=== PATIENT | male | born 1990 | race Caucasian/White ===

== ENCOUNTER 2018-01-18 10:07 | Emergency (ER) | payer SELFPAY ==
[~2018-01-18 10:07] MED LIST: CEPH500C3 PO; CLIN150 PO; SERT50 PO
[2018-01-18 10:46] VITALS: BP 127/60; PULSE 82; RESP 16; O2SAT 99
[2018-01-18 11:51] LABS: BILIRUBIN, URINE NEG (NEG); BLOOD, URINE NEG (NEG); GLUCOSE,URINE NEG (NEG); KETONE, URINE NEG (NEG); NITRITE,URINE NEG (NEG); URINE COLOR YELLOW (YELLW/STRAW); URINE LEUKOCYTE ESTERASE NEG (NEG)
--- NOTE | 2018-01-18 12:38 | PD ---
HPI Chief Complaint: Medical Clearance Time Seen by Provider: 12:21 Travel History International Travel<30 days: No Contact w/Intl Traveler<30days: No Traveled to known affect area: No History of Present Illness HPI 27y male presents to the emergency department complaining of "itchy bumps" in his private parts and other areas of his body for approximately 2 weeks. Patient states that these small bumps just started appearing and they go away spontaneously. He denies fevers, chills, shortness of breath, chest pain, cough , congestion. Says he has had one sexual partner the last month which is his girlfriend. States that she has had a urinary tract infections along with yeast infections and has had unprotected sex with her. He suspects that maybe these bumps are related to her condition. Says he has a history of hypothyroidism and he started taking levothyroxine August last year. He does have primary care physician in regard. He denies penile discharge, dysuria, melena, hematochezia. Denies recent travel or exposures. 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 Leave on for 8-12 hour, then wash off. 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 Review of Systems Except as stated in HPI: all other systems reviewed are Neg Physical Exam Narrative GENERAL: Well-nourished, well-developed patient. SKIN: Focused skin assessment warm/dry. Abdomen- similar papules to those in the groin region, no excoriations, no erythema or edema HEAD: Normocephalic. EYES: No scleral icterus. No injection or drainage. NECK: Supple, trachea midline. No JVD or lymphadenopathy. CARDIOVASCULAR: Regular rate and rhythm without murmurs, gallops, or rubs. RESPIRATORY: Breath sounds equal bilaterally. No accessory muscle use. GASTROINTESTINAL: Abdomen soft, nondistended. Mild TTP to midepigatric region ( pt says this is chronic) Groin evaluated in the presence of another nurse-small 1-2 mm papules, raised, pink without umbilication or edema to the area. no penile discharge. no lymphadenopathy. no scrotal edema MUSCULOSKELETAL: No cyanosis, or edema. BACK: Nontender without obvious deformity. No CVA tenderness. Data Data Last Documented VS Vital Signs Date Time Temp Pulse Resp B/P (MAP) Pulse Ox O2 Delivery O2 Flow Rate FiO2 01/18/18 14:22 69 18 119/6 (43) 100 Orders Orders Complete Blood Count With Diff (01/18/18 10:47) Basic Metabolic Panel (Bmp) (01/18/18 10:47) Urinalysis - C+S If Indicated (01/18/18 10:47) Gc And Chlamydia Pcr (01/18/18 10:47) Azithromycin Powd Pack (Zithromax Powd P (01/18/18 13:30) Ceftriaxone Inj (Rocephin Inj) (01/18/18 13:30) Ondansetron Odt (Zofran Odt) (01/18/18 13:30) Lidocaine 1% Inj (50 Ml) (Xylocaine 1% I (01/18/18 13:30) Ed Discharge Order (01/18/18 13:36) Labs Laboratory Tests Test 01/18/18 11:00 01/18/18 11:40 Urine Color YELLOW Urine Turbidity CLEAR Urine pH 6.0 Urine Specific [place] 1.025 Urine Protein NEG mg/dL Urine Glucose (UA) NEG mg/dL Urine Ketones NEG mg/dL Urine Occult Blood NEG Urine Nitrite NEG Urine Bilirubin NEG Urine Urobilinogen LESS THAN 2.0 MG/DL Urine Leukocyte Esterase NEG Urine RBC LESS THAN 1 /hpf Urine WBC LESS THAN 1 /hpf Microscopic Urinalysis Comment CULT NOT INDICATED Chlamydia trachomatis DNA (PCR) NOT DETECTED Neisseria gonorrhoeae DNA (PCR) NOT DETECTED White Blood Count 5.8 TH/MM3 Red Blood Count 5.13 MIL/MM3 Hemoglobin 15.4 GM/DL Hematocrit 43.9 % Mean Corpuscular Volume 85.6 FL Mean Corpuscular Hemoglobin 30.0 PG Mean Corpuscular Hemoglobin Concent 35.0 % Red Cell Distribution Width 12.5 % Platelet Count 264 TH/MM3 Mean Platelet Volume 7.8 FL Neutrophils (%) (Auto) 48.4 % Lymphocytes (%) (Auto) 38.4 % Monocytes (%) (Auto) 10.4 % Eosinophils (%) (Auto) 2.1 % Basophils (%) (Auto) 0.7 % Neutrophils # (Auto) 2.8 TH/MM3 Lymphocytes # (Auto) 2.2 TH/MM3 Monocytes # (Auto) 0.6 TH/MM3 Eosinophils # (Auto) 0.1 TH/MM3 Basophils # (Auto) 0.0 TH/MM3 CBC Comment DIFF FINAL Differential Comment Blood Urea Nitrogen 18 MG/DL Creatinine 1.06 MG/DL Random Glucose 85 MG/DL Calcium Level 9.2 MG/DL Sodium Level 142 MEQ/L Potassium Level 4.0 MEQ/L Chloride Level 106 MEQ/L Carbon Dioxide Level 28.2 MEQ/L Anion Gap 8 MEQ/L Estimat Glomerular Filtration Rate 84 ML/MIN MDM Medical Decision Making Medical Screen Exam Complete: Yes Emergency Medical Condition: Yes Differential Diagnosis Gonorrhea, chlamydia, candidiasis, contact dermatitis Narrative Course 27-year-old male presents to emergency department with concerns of a rash that has been present for approximately 2 weeks. Patient says that the rash is diffuse but spontaneously resolves. States that they are mildly pruritic. Denies recent travel. Says he has had one partner in the last month. Vital signs stable. Exam findings consistent with very small papules ranging from 1-2 mm and salmon colored- scant amount along beltline, anterior legs. No umbilication of these papules. The rash is on the groin as well. No obvious excoriations. No ulcerations or evidence of cellulitis. After further discussion with the patient, I explained that there were 2 tests that will not results while he is in the emergency department today. Because of the history of the patient, we will treat for chlamydia and gonorrhea. 1 g azithromycin, 250 mg Rocephin administered. Pt says he is monogamous but says he would like to be 'treated for everything'. Zofran administered for nausea prevention. In addition, will give permethrin cream for questionable history of exposures. Patient advised to have partner treated as well if this is a concern. Follow up with PCP. Return for worsening or persistent symptoms. Diagnosis Primary Impression: Dermatitis Additional Impression: Urethritis Referrals: Primary Care Physician Additional Instructions: He was treated for urethritis today. Although your labs looked normal, he was given 2 antibiotics in the emergency department today. You did not require any other antibiotics as an outpatient. Recommend following up with your primary care physician for further evaluation of your "bumps". I recommend having your partner treated as well. You may use [id number] topical Benadryl for your lesions for itching. Scripts Permethrin Topical 5% (Permethrin Topical 5%) 5% Cream 1 APPLIC TOPICAL ONCE for Rash, #1 TUBE 0 Refills Apply head to toe for rash. Leave on for 8-12 hour, then wash off. 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 Prov: Richelle Pete 01/18/18 Disposition: 01 DISCHARGE HOME Condition: Stable Richelle Pete Jan 18, 2018 12:38
[2018-01-18 13:03] LABS: AUTOMATED NEUTROPHIL # 2.8 TH/MM3 (1.8-7.7); BASOPHIL % 0.7 % (0.0-2.0); EOSINOPHIL # 0.1 TH/MM3 (0-0.4); EOSINOPHIL % 2.1 % (0.0-4.0); HEMATOCRIT 43.9 % (39.0-51.0); HEMOGLOBIN 15.4 GM/DL (13.0-17.0); LYMPH % 38.4 % (9.0-44.0); LYMPHOCYTE # 2.2 TH/MM3 (1.0-4.8); MEAN CELL VOLUME 85.6 FL (80.0-100.0); MEAN PLATELET VOLUME 7.8 FL (7.0-11.0); MONO % 10.4 % (0.0-8.0); MONOCYTE # 0.6 TH/MM3 (0-0.9); NEUT % 48.4 % (16.0-70.0); PLATELET COUNT 264 TH/MM3 (150-450); RED BLOOD COUNT 5.13 MIL/MM3 (4.50-5.90); RED CELL DISTRIBUTION WIDTH 12.5 % (11.6-17.2); WHITE BLOOD COUNT 5.8 TH/MM3 (4.0-11.0)
[2018-01-18 13:20] LABS: BICARBONATE 28.2 MEQ/L (21.0-32.0); CALCIUM 9.2 MG/DL (8.5-10.1); CREATININE 1.06 MG/DL (0.60-1.30)
[2018-01-18] MEDS ORDERED: ONDANSETRON ODT 4 MG TAB PO/SL ONE (13:30)
[2018-01-18] MEDS ORDERED: LIDOCAINE HCL 1% 50 ML VIAL XX ONE (13:30)
[2018-01-18] MEDS ORDERED: AZITHROMYCIN PWD FOR SUSP 1 GM PACKET PO ONE (13:30)
[2018-01-18] MEDS ORDERED: cefTRIAXone 250 MG VIAL IM ONE (13:30)
[2018-01-18] MEDS ORDERED: PERM5CRE TOPICAL (13:35)
[2018-01-18 14:22] VITALS: BP 119/6
== END 2018-01-18 14:30 | disposition home or self-care (01) ==
LOC: NEPA 10:07
DX: L30.9 Dermatitis, unspecified (principal); N34.2 Other urethritis; E03.9 Hypothyroidism, unspecified
CPT/HCPCS: 80048; 81001; 85025; 87491; 87591; 96372; 99283; J0696